=== PATIENT | male | born 1985 | race African-American/Black ===

== ENCOUNTER 2017-04-02 21:56 | Emergency (ER) | payer MEDICAID, OTHER ==
[~2017-04-02] VITALS: Ht 180.3 cm; Wt 74.8 kg
[2017-04-02] MEDS ORDERED: NKM (22:37)
--- NOTE | 2017-04-02 23:41 | Emergency Room Report ---
History of Present Illness General Chief Complaint: Upper Extremity Injury Source: Patient Present Illness HPI Patient presents with chief complaint of pain in head. I call a multiple trauma no answer. He left after triage. I did not see the patient. Allergies: Coded Allergies: No Known Allergies (Unverified , 04/02/17) Nursing Documentation-[facility] Past Medical History: No Stated History Physical Exam Vital Signs Date Time Temp Pulse Resp B/P (MAP) Pulse Ox O2 Delivery O2 Flow Rate FiO2 04/02/17 22:33 98.1 77 16 107/69 98 Room Air Medical Decision Making Diagnostic Impression: Primary Impression: Headache Last Vital Signs Date Time Temp Pulse Resp B/P (MAP) Pulse Ox O2 Delivery O2 Flow Rate FiO2 04/02/17 22:33 98.1 77 16 107/69 98 Room Air Disposition: LEFT W/OUT BEING SEEN DINA HE M.D. Apr 02, 2017 23:41
[2017-04-02] MEDS ORDERED: GABAPENTIN300 MG ORAL (23:44)
--- NOTE | 2017-04-02 23:45 | Emergency Room Report ---
History of Present Illness General Chief Complaint: Upper Extremity Injury Source: Patient Present Illness HPI Is a 32-year-old male who initially he didn't show up when I called him. He finally did. Initially came in complaining of pain in his head but that now complaining of pain in his hand with numbness to his been onset for one day. No trauma. No focal weakness. Denies any other complaint. Allergies: Coded Allergies: No Known Allergies (Unverified , 04/02/17) Patient History Past Medical History: see triage record, old chart reviewed Past Surgical History: none Pertinent Family History: none Social History: Denies: smoking Immunizations: other Reviewed Nursing Documentation: PMH: Agreed, PSxH: Agreed Nursing Documentation-PMH Past Medical History: No Stated History Review of Systems Eye: Denies: eye pain, blurred vision ENT: Denies: ear pain, nose congestion, throat swelling Respiratory: Denies: cough, shortness of breath Cardiovascular: Denies: chest pain, palpitations Gastrointestinal: Denies: abdominal pain, diarrhea, nausea, vomiting Musculoskeletal: Reports: other, Denies: back pain, joint pain Skin: Denies: rash Neurological: Denies: headache, numbness Endocrine: Denies: increased thirst, increased urine Hematologic/Lymphatic: Denies: easy bruising All Other Systems: negative except mentioned in HPI Physical Exam Vital Signs Date Time Temp Pulse Resp B/P (MAP) Pulse Ox O2 Delivery O2 Flow Rate FiO2 04/02/17 22:33 98.1 77 16 107/69 98 Room Air vitals normal Sp02 EP Interpretation: reviewed, normal General Appearance: well appearing, no apparent distress, alert Head: normocephalic, atraumatic Eyes: bilateral eye PERRL, bilateral eye EOMI ENT: hearing grossly normal, normal pharynx Neck: full range of motion, supple, no meningismus Respiratory: chest non-tender, lungs clear, normal breath sounds Cardiovascular #1: regular rate, rhythm, no murmur Gastrointestinal: normal bowel sounds, non tender, no mass, no organomegaly, no bruit, non-distended Musculoskeletal: back normal, gait/station normal, normal range of motion Psychiatric: mood/affect normal Skin: warm/dry Medical Decision Making Diagnostic Impression: Primary Impression: Neuropathy of left hand ER Course This patient presents with numbness to his left hand. This may be secondary to carpal tunnel. May be referred pain. Maybe neuropathy. We'll discharge home. No trauma. No evidence of infection. No evidence of arterial occlusion. Last Vital Signs Date Time Temp Pulse Resp B/P (MAP) Pulse Ox O2 Delivery O2 Flow Rate FiO2 04/02/17 22:33 98.1 77 16 107/69 98 Room Air Status: unchanged Disposition: HOME, SELF-CARE Condition: Stable Scripts Gabapentin* (GABAPENTIN*) 300 Mg Capsule 300 MG ORAL THREE TIMES A DAY, #30 CAP 0 Refills Prov: DINA HE M.D. 04/02/17 Additional Instructions: Followup your DrEverardo in 7 days. Return if symptom worsen. DINA HE M.D. Apr 02, 2017 23:45
[2017-04-02 23:59] VITALS: BP 107/69
== END 2017-04-03 00:05 | disposition home or self-care (01) ==
LOC: EMR 04-03
DX: G62.9 Polyneuropathy, unspecified (principal)
CPT/HCPCS: 99283